=== PATIENT | female | born 1965 | race Caucasian/White ===

== ENCOUNTER 2016-09-08 06:00 | Day surgery (SDC) | payer OTHER ==
[~2016-09-08] VITALS: Ht 152.4 cm; Wt 65.7 kg
[~2016-09-08 06:00] MED LIST: LORA1TAB PO
[2016-09-08 06:55] VITALS: Ht 152.4 cm; Wt 65.7 kg
[2016-09-08] MEDS ORDERED: MAG OX (07:04)
[2016-09-08] MEDS ORDERED: CHOL100062 PO (07:04)
[2016-09-08 07:23] VITALS: BP 146/73; PULSE 85; RESP 12
[2016-09-08] MEDS ORDERED: MIDAZOLAM 1 MG/ML 2 ML INJ ONE ×2 (08:26)
[2016-09-08] MEDS ORDERED: FENTAnyl 50 MCG/ML VIAL ONE (08:26)
[2016-09-08 08:50] VITALS: BP 141/76; PULSE 72; RESP 16
--- NOTE | 2016-09-08 09:28 | GILP ---
DATE OF PROCEDURE: 09/08/2016 NAME OF PROCEDURE: Colonoscopy. SURGEON: Jeromy Melendez MD. PREOPERATIVE DIAGNOSIS: Screening colonoscopy. POSTOPERATIVE DIAGNOSES: 1. Colonoscopy all the way to the cecum. 2. Internal hemorrhoids. 3. No colon neoplasm was identified. INDICATION FOR THE PROCEDURE: Ms. Marla Beach is a 50-year-old female patient who was schedule d for screening colonoscopy. The procedure and possible complications are well explained to the patient. The patient understood and consented to the procedure. DESCRIPTION OF PROCEDURE: Under the influence of fentanyl and Versed, the colonoscope was carefully introduced in the rectum and under direct vision, it was advanced all the way to the cecum. FINDINGS: The patient had internal hemorrhoids. No colon neoplasm was identified. She tolerated the procedure very well and there was no complication from the procedure. At the end of the procedure, she was awake with stable vital signs, and she was discharged home to the care of her family. IMPRESSION: 1. Colonoscopy all the way to the cecum. 2. Internal hemorrhoids. 3. No colon neoplasm was identified. PLAN: Next screening colonoscopy in 10 years. Dictated By: JEROMY RIVAS/ANATOLIY Conf#: [id number] DID#: [id number] CC: Stephany Mejia;*EndCC*
== END 2016-09-08 17:35 | disposition home or self-care (01) ==
LOC: GIL 06:00
PROVIDERS: ATTEND Internal Medicine Gastroenterology
DX: Z12.11 Encounter for screening for malignant neoplasm of colon (principal); K64.8 Other hemorrhoids
CPT/HCPCS: 45378; J2250; J3010

== ENCOUNTER 2016-11-14 11:28 | Emergency (ER) | payer OTHER ==
[~2016-11-14] VITALS: Ht 157.5 cm; Wt 67.5 kg
[~2016-11-14 11:28] MED LIST changes: +CHOL100062 PO; -LORA1TAB PO; +MAG OX
[2016-11-14 11:31] VITALS: Ht 157.5 cm; Wt 67.5 kg
[2016-11-14] MEDS ORDERED: LIDOCAINE/MYLANTA 40 ML BTL PO STA (13:28)
[2016-11-14] MEDS ORDERED: FAMOTIDINE 20 MG TAB PO ONE (13:30)
--- NOTE | 2016-11-14 14:02 | ERD ---
ER Documentation Chief Complaint Date/Time DATE: 11/14/16 TIME: 14:02 Chief Complaint Pt with AP X 6 days. HPI 50-year-old female with no significant past medical history presenting with epigastric pain intermittent for the past 6 days. She describes as burning, nonradiating, worse after eating, better when not eating. No associated hematemesis, nausea, vomiting, hematochezia, or melena. Currently the pain is a 2 out of 10. She denies any associated chest pain or shortness of breath. She does feel acid reflux at times. She drinks coffee daily but denies any NSAID use or spicy foods. ROS All systems reviewed and are negative except as per history of present illness. Medications Home Meds Active Scripts Mag Hydrox/Al Hydrox/Simeth (Maalox Advanced Suspension) 355 Ml Oral.susp, 30 ML PO PC MEALS BEDTIME Y for GASTROINTESTINAL UPSET, #355 Prov:YASH BRODERICK MD 11/14/16 Famotidine* (Pepcid*) 20 Mg Tablet, 20 MG PO BID for 14 Days, TAB Prov:YASH BRODERICK MD 11/14/16 Reported Medications [Mag Ox ] No Conflict Check 09/08/16 Cholecalciferol* (Vitamin D3*) 1,000 Unit Tablet, 1000 UNIT PO DAILY, TAB 09/08/16 Allergies Allergies: Coded Allergies: No Known Allergy (Unverified , 09/08/16) PMhx/Soc History of Surgery: Yes (BREAST AUGMENTATION) Anesthesia Reaction: No Hx Neurological Disorder: No Hx Respiratory Disorders: No Hx Cardiac Disorders: Yes (STATES HIGH BP AT TIMES) Hx Psychiatric Problems: Yes (anxiety) Hx Miscellaneous Medical Probl: No Hx Alcohol Use: No Hx Substance Use: No Hx Tobacco Use: No Smoking Status: Never smoker FmHx Family History: No diabetes Physical Exam Vitals Vital Signs Date Time Temp Pulse Resp B/P Pulse Ox O2 Delivery O2 Flow Rate FiO2 11/14/16 13:06 98.0 78 18 125/64 99 Room Air 11/14/16 11:31 97.7 74 18 127/60 98 Physical Exam Const: Well-appearing, pleasant, no apparent distress Head: Atraumatic Eyes: Normal Conjunctiva ENT: Normal External Ears, Nose and Mouth. Neck: Full range of motion..~ No meningismus. Resp: Clear to auscultation bilaterally Cardio: Regular rate and rhythm, no murmurs. 2+ distal pulses Abd: Soft, non tender, non distended. Negative Goodman sign. No McBurney's point tenderness. Normal bowel sounds Skin: No petechiae or rashes Back: No midline or flank tenderness Ext: No cyanosis, or edema Neur: Awake and alert Psych: Normal Mood and Affect Results 24 hrs Current Medications Medications (Trade) Dose Ordered Sig/Zahraa Route PRN Reason Start Time Stop Time Status Last Admin Dose Admin Famotidine (Pepcid) 20 mg ONCE ONCE PO 11/14/16 13:30 11/14/16 13:31 DC 11/14/16 13:45 Miscellaneous Medication (Gi Cocktail (2)) 40 ml ONCE STAT PO 11/14/16 13:28 11/14/16 13:29 DC 11/14/16 13:45 Simethicone (Mylicon) 160 mg ONCE ONCE PO 11/14/16 14:30 11/14/16 14:31 Procedures/MDM Patient is presenting with epigastric burning abdominal pain after eating. She is hemodynamically stable and afebrile. I have a low suspicion for acute surgical abdomen, pancreatitis, choledocholithiasis, acute coronary syndrome, aortic dissection or rupture. GI cocktail was given with resolution of her symptoms. At this time I do not think the patient needs any further workup. Diet modification was discussed. I will start her on Pepcid 20 mg twice daily for 2 weeks in addition to Maalox as needed. Follow-up with PCP was recommended in 2 days. She was encouraged to return for any worsening symptoms and return precautions were discussed. Departure Diagnosis: Primary Impression: Epigastric pain Condition: Stable YASH BRODERICK MD Nov 14, 2016 14:02
[2016-11-14] MEDS ORDERED: MAG355OR14 PO (14:05)
[2016-11-14] MEDS ORDERED: FAMO-96 PO (14:05)
[2016-11-14 15:12] VITALS: BP 129/70; PULSE 81; RESP 18; TEMP 98.2
== END 2016-11-14 15:14 | disposition home or self-care (01) ==
LOC: E/R 11:28
DX: R10.13 Epigastric pain (principal)
CPT/HCPCS: Z7502; Z7610; 99283

== ENCOUNTER 2017-04-13 11:56 | Emergency (ER) | END 2017-04-13 14:50 | disposition home or self-care (01) ==

== ENCOUNTER 2017-06-21 11:30 | Emergency (ER) | END 2017-06-21 17:12 | disposition home or self-care (01) ==

== ENCOUNTER 2017-10-14 09:45 | Emergency (ER) | END 2017-10-14 11:18 | disposition home or self-care (01) ==

== ENCOUNTER 2018-08-24 14:47 | Emergency (ER) | payer OTHER ==
[~2018-08-24] VITALS: Ht 152.4 cm; Wt 62.6 kg
[~2018-08-24 14:47] MED LIST changes: +CROM10DR6 BOTH EYES; +FAMO-96 PO; +FLUT16SP17 NASAL; +LORA-441 PO; +MAG355OR14 PO; +PANT40TA3 PO
[2018-08-24 14:51] VITALS: Ht 152.4 cm; Wt 62.6 kg
[2018-08-24] MEDS ORDERED: LIDOCAINE/MYLANTA 40 ML BTL PO STA (17:57)
[2018-08-24] MEDS ORDERED: BELLADONNA/PHENOBARBITAL TAB PO STA (17:57)
[2018-08-24] MEDS ORDERED: LORA-441 PO (17:58)
[2018-08-24] MEDS ORDERED: LORAZEPAM 0.5 MG TAB PO ONE (18:00)
--- NOTE | 2018-08-24 18:06 | ERD ---
ER Documentation Chief Complaint Chief Complaint PALPITATION WITH SOB, FATIGUE, ANXIETY HPI This is a 52-year-old woman with a history of anxiety and right breast cancer status post chemotherapy a week ago presenting with 1 week of paresthesias, palpitations, insomnia, "feeling anxious" and discomfort in her epigastrium. She states she has had all of the symptoms in the past usually associated with anxiety. In the past she was prescribed amitriptyline although she is currently noncompliant with that medication. Patient denies chest pain or shortness of breath, no calf or leg swelling, no fevers or chills, no vomiting or diarrhea, no LOC. ROS All systems reviewed and are negative except as per history of present illness. Medications Home Meds Active Scripts Lorazepam* (Ativan*) 0.5 Mg Tablet, 0.5 MG PO Q8H PRN for ANXIETY, #15 TAB Prov:MARIA C FREDERICK MD 08/24/18 Lorazepam* (Ativan*) 0.5 Mg Tablet, 0.5 MG PO Q8, #10 TAB Prov:ISSA BAY MD 10/14/17 Pantoprazole* (Protonix*) 40 Mg Tablet.dr, 40 MG PO DAILY, #20 TAB Prov:ROXI DUMONT MD 06/21/17 Fluticasone Propionate* (Fluticasone Propionate* Nasal) 50 Mcg/[place] - 16 Gm [place].susp, 1 SPRAY NASAL BID for 30 Days, #1 BOTTLE TO EACH NOSTRIL Prov:UGO TORRES MD 04/13/17 Cromolyn Sodium* (Cromolyn Sodium*) 4% - 10 Ml Drops, 1 DROP BOTH EYES QID for 30 Days, #1 EA Prov:UGO TORRES MD 04/13/17 Mag Hydrox/Al Hydrox/Simeth (Maalox Advanced Suspension) 355 Ml Oral.susp, 30 ML PO PC MEALS BEDTIME PRN for GASTROINTESTINAL UPSET, #355 Prov:YASH BRODERICK MD 11/14/16 Famotidine* (Pepcid*) 20 Mg Tablet, 20 MG PO BID for 14 Days, TAB Prov:YASH BRODERICK MD 11/14/16 Reported Medications [Mag Ox ] No Conflict Check 09/08/16 Cholecalciferol* (Vitamin D3*) 1,000 Unit Tablet, 1000 UNIT PO DAILY, TAB 09/08/16 Allergies Allergies: Coded Allergies: No Known Allergy (Unverified , 04/13/17) PMhx/Soc Anxiety, right breast carcinoma currently on chemotherapy, History of Surgery: Yes (BREAST AUGMENTATION) Anesthesia Reaction: No Hx Neurological Disorder: No Hx Respiratory Disorders: No Hx Cardiac Disorders: Yes (STATES HIGH BP AT TIMES) Hx Psychiatric Problems: Yes (anxiety) Hx Miscellaneous Medical Probl: Yes (breast cancer ) Hx Alcohol Use: No Hx Substance Use: No Hx Tobacco Use: No FmHx Family History: No diabetes Physical Exam Vitals Vital Signs Date Temp Pulse Resp B/P (MAP) Pulse Ox O2 O2 Flow FiO2 Time Delivery Rate 08/24/18 99.5 93 16 142/65 96 14:51 (90) Physical Exam GENERAL: Well-developed, well-nourished, anxious, afebrile HEENT: Moist mucous membranes, pink conjunctiva, no cervical spine tenderness or step-off deformities, no goiter, no jaundice or icterus, extraocular movements intact without pain. No submandibular induration, and no pharyngeal erythema NEURO: Alert and oriented 3, cranial nerves II through XII intact bilaterally, pupils equal round reactive to light, no focal deficits or facial asymmetry, sensation intact distally Strength 5/5 in upper and lower extremities bilaterally CARDIAC: Regular rate and rhythm, no murmurs rubs or gallops LUNGS: Clear bilaterally no wheezing crackles or stridor ABDOMEN: Soft nontender, no guarding, no rigidity, no rebound, no psoas sign no obturator sign. Normoactive bowel sounds SKIN: Warm and dry to touch, no abrasions, contusions, or hematomas, no lacerations, no ecchymosis, no target lesions, and without ulcers EXTREMITIES: No clubbing cyanosis or edema, calves are bilaterally symmetrical, no Homans sign, no popliteal cord sign. Distal pulses equal and bilateral PSYCH: Anxious Results 24 hrs Current Medications Medications Dose Sig/Zahraa Start Time Status Last (Trade) Ordered Route PRN Stop Time Admin Dose Reason Admin Lorazepam 0.5 mg ONCE ONCE 08/24/18 (Ativan) PO 18:00 08/24/18 18:01 40 ml ONCE STAT 08/24/18 DC Miscellaneous PO 17:57 Medication 08/24/18 17:58 (Gi Cocktail (2)) Belladonna/ 2 tab ONCE STAT 08/24/18 DC Phenobarbital PO 17:57 () 08/24/18 17:58 Procedures/MDM Patient was placed on color television console monitor initial rhythm was a narrow complex tachycardia at 100 bpm. Patient was afebrile. I administered lorazepam 0.5 mg p.o. for his symptoms and a GI cocktail p.o. EKG performed, read by me reveals a normal sinus rhythm 99 bpm, normal axis, narrow QRS complex, no concerning ST elevations or depressions. Patient looks well and has no concerning points on history or physical exam, she does have anxiety and is presenting with her typical anxiety symptoms she will be discharged from our ED to continue outpatient management with her PMD and oncologist. Differential diagnoses considered, included but not limited to acute coronary syndrome, pulmonary embolism, aortic dissection, abdominal aortic aneurysm, sepsis, stroke, meningitis, encephalitis, pneumonia, appendicitis, cholecystitis, bowel obstruction, pyelonephritis, nephrolithiasis, cystitis, as well as metabolic, hematologic, and electrolyte abnormalities. As well as abscess, cellulitis, fractures, and dislocations. Patient feels much better at this time, and vital signs are normal, symptoms have improved. I did give strict instructions to return to the ED if symptoms continue or worsen, patient will otherwise follow-up with primary care physician. Patient understood instructions and agreed to plan. Disclaimer: Inadvertent spelling and grammatical errors are likely due to EHR/dictation software use and do not reflect on the overall quality of patient care. Also, please note that the electronic time recorded on this note does not necessarily reflect the actual time of the patient encounter. Departure Diagnosis: Primary Impression: Palpitations Additional Impressions: Insomnia Insomnia type: primary Qualified Codes: F51.01 - Primary insomnia Acute anxiety Condition: Good Patient Instructions: Anxiety Reaction, Insomnia Referrals: [facility] (PCP) MARIA C FREDERICK MD August 24, 2018 18:06
[2018-08-24 18:39] VITALS: BP 134/69; PULSE 78; RESP 20
== END 2018-08-24 19:01 | disposition home or self-care (01) ==
LOC: E/R 14:47
DX: R00.2 Palpitations (principal); F51.01 Primary insomnia; F41.9 Anxiety disorder, unspecified; D05.91 Unspecified type of carcinoma in situ of right breast
CPT/HCPCS: Z7502; Z7610